=== PATIENT | male | born 1985 | race African-American/Black ===

== ENCOUNTER 2017-07-27 18:54 | Emergency (ER) | payer BC, OTHER ==
[2017-07-27] MEDS ORDERED: HYDROcodone/Acetaminophen 5/325 mg Tablet ONE (19:14)
--- NOTE | 2017-07-27 19:40 | CT ---
CT OF HEAD NONCONTRAST: Indication: Pain. FINDINGS: There is no ventriculomegaly, mass effect, midline shift, or acute intracranial hemorrhage. There is minimal paranasal sinus mucosal thickening. There is mild nonspecific subcutaneous density of the occ ipital scalp. IMPRESSION: No acute intracranial hemorrhage or mass effect. POS: C
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
== END 2017-07-27 20:48 | disposition home or self-care (01) ==
LOC: ERS 18:54
DX: S16.1XXA Strain of muscle, fascia and tendon at neck level, initial encounter (principal); J45.909 Unspecified asthma, uncomplicated; V43.52XA Car driver injured in collision with other type car in traffic accident, initial encounter
CPT/HCPCS: 70450; 72125